=== PATIENT | male | born 1990 | race Two or more races ===

== ENCOUNTER 2019-03-17 09:30 | Emergency (ER) | payer OTHER ==
[~2019-03-17] VITALS: Ht 167.6 cm; Wt 72.5 kg
[2019-03-17 09:31] VITALS: BP 137/72
[2019-03-17 11:01] LABS: RAPID INFLUENZA A Negative (Negative); RAPID INFLUENZA B POSITIVE (Negative)
--- NOTE | 2019-03-17 11:20 | NUR ---
late entry: pt given dc instructions and script, educated regarding rx for albuterol, tamiflu and tessalon. pt a&o, resps even and unlabored, nadn. pt denies nausea at this time. pt amb to dc desk with steady gait accompanied by family.
== END 2019-03-17 11:22 | disposition home or self-care (01) ==
LOC: ED 10:45
DX: J10.1 Influenza due to other identified influenza virus with other respiratory manifestations (principal); M79.10 Myalgia, unspecified site
CPT/HCPCS: 71046; 87400; 99284